=== PATIENT | female | born 1985 | race Hispanic/Latino ===

== ENCOUNTER 2018-06-26 19:11 | Emergency (ER) | payer SELFPAY ==
[2018-06-26] MEDS ORDERED: HYDROCODONE/APAP 5/325 MG TAB ONE (20:10)
[2018-06-26] MEDS ORDERED: CLINDAMYCIN IV 150 MG/ML (4 mL) VIAL ONE (20:25)
--- NOTE | 2018-06-26 20:36 | ER ---
Nurse's Notes [facility] Name: Glendy Baptiste Age: 32 yrs Sex: Female : 1985 Arrival Date: 06/26/2018 Time: 19:13 Bed 12 Private MD: Diagnosis: Periapical abscess without sinus Presentation: 06/26 19:35 Presenting complaint: Patient states: RIGHT cheek/gum/tooth swelling x 1 week. sr5 19:35 Acuity: KELLY 4 sr5 19:35 Transition of care: patient was not received from another setting of care. Onset of sr5 symptoms was June 19, 2018. Risk Assessment: Do you want to hurt yourself or someone else? Patient reports no desire to harm self or others. Initial Sepsis Screen: Does the patient meet any 2 criteria? No. Patient's initial sepsis screen is negative. Does the patient have a suspected source of infection? No. Patient's initial sepsis screen is negative. Care prior to arrival: Medication(s) given: Tylenol and MOtrin at approx 5pm. 19:35 Method Of Arrival: Ambulatory sr5 Triage Assessment: 19:35 General: Appears uncomfortable, Behavior is calm, cooperative. Pain: Complains of pain sr5 in mouth and right buccal mucosa. Neuro: No deficits noted. Cardiovascular: No deficits noted. Respiratory: No deficits noted. GI: No deficits noted. : No deficits noted. Derm: No deficits noted. Musculoskeletal: No deficits noted. 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 - Social history:: Smoking status: Patient uses tobacco products, smokes one-half pack cigarettes per day. - Ebola Screening: : Patient negative for fever greater than or equal to 101.5 degrees Fahrenheit, and additional compatible Ebola Virus Disease symptoms. Screenin:31 Abuse screen: Denies threats or abuse. Nutritional screening: No deficits noted. sr5 Tuberculosis screening: No symptoms or risk factors identified. Fall Risk None identified. Assessment: 20:30 General: Appears uncomfortable, Behavior is calm, cooperative. Pain: Complains of pain sr5 in gums and right buccal mucosa Pain currently is 10 out of 10 on a pain scale. Quality of pain is described as throbbing. Neuro: No deficits noted. Cardiovascular: No deficits noted. Respiratory: No deficits noted. GI: No deficits noted. : No deficits noted. Derm: No deficits noted. Musculoskeletal: No deficits noted. Vital Signs: 19:35 BP 124 / 85; Pulse 89; Resp 18; Temp 97.8; Pulse Ox 98% ; Weight 61.69 kg; Height 5 ft. sr5 4 in. (162.56 cm); Pain 10/10; 19:35 Body Mass Index 23.34 (61.69 kg, 162.56 cm) sr5 ED Course: 19:13 Patient arrived in ED. al2 19:35 Meng Orellana, RN is Primary Nurse. sr5 19:35 Arm band placed on. sr5 19:36 Triage completed. sr5 19:39 Lambert Flores NP is PHCP. pm1 19:39 Jhoan Bañuelos MD is Attending Physician. pm1 20:31 Awaiting: shot time. sr5 20:31 Patient has correct armband on for positive identification. Bed in low position. Call sr5 light in reach. 20:31 No provider procedures requiring assistance completed. Patient did not have IV access sr5 during this emergency room visit. Administered Medications: 20:11 Drug: [place] 5 mg-325 mg 1 tabs Route: PO; sr5 20:41 Follow up: Response: No change in condition sr5 20:30 Drug: Clindamycin 600 mg {Note: IM divided into 2 shots due to overall volume. RIGHT sr5 gluteus 2mL, LEFT gluteus 2 ML.} Route: IM; Site: left gluteus; 20:45 Follow up: Response: No adverse reaction sr5 Outcome: 19:46 Discharge ordered by . pm1 20:45 Patient left the ED. sr5 20:45 Discharged to home ambulatory. sr5 20:45 Condition: good 20:45 Discharge instructions given to patient, Instructed on discharge instructions, follow up and referral plans. medication usage, Demonstrated understanding of instructions, follow-up care, medications, Prescriptions given X 2. Signatures: Lambert Flores NP DRAGLINE ENGINEER pm1 Meng Orellana, RN RN sr5 Mayra, Lashon alIraj
--- NOTE | 2018-06-26 20:36 | EDPHYS ---
Physician Documentation [facility] Name: Glendy Baptiste Age: 32 yrs Sex: Female : 1985 Arrival Date: 06/26/2018 Time: 19:13 Bed 12 Private MD: ED Physician Jhoan Bañuelos HPI: 06/26 22:25 This 32 yrs old Female presents to ER via Ambulatory with complaints of Dental pm1 pain and swollen right cheek. 22:25 The patient presents with pain, swelling. The problem is located in the upper right pm1 third molar and upper right second molar. Onset: The symptoms/episode began/occurred 1 week(s) ago. Duration: The symptoms are continuous. Modifying factors: The symptoms are alleviated by nothing, the symptoms are aggravated by chewing, food. Associated signs and symptoms: Pertinent positives: swelling, facial, Pertinent negatives: fever, inability to eat, nausea, vomiting. Severity of symptoms: in the emergency department the symptoms are actually worse. The patient has experienced similar episodes in the past, a few times. The patient has not recently seen a physician. 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 - Social history:: Smoking status: Patient uses tobacco products, smokes one-half pack cigarettes per day. - Ebola Screening: : Patient negative for fever greater than or equal to 101.5 degrees Fahrenheit, and additional compatible Ebola Virus Disease symptoms. ROS: 22:25 Constitutional: Negative for fever, chills, and weight loss, Eyes: Negative for injury, pm1 pain, redness, and discharge. 22:25 Neck: Negative for injury, pain, and swelling, Cardiovascular: Negative for chest pain, palpitations, and edema, Respiratory: Negative for shortness of breath, cough, wheezing, and pleuritic chest pain, Abdomen/GI: Negative for abdominal pain, nausea, vomiting, diarrhea, and constipation, Back: Negative for injury and pain, MS/Extremity: Negative for injury and deformity, Skin: Negative for injury, rash, and discoloration, Neuro: Negative for headache, weakness, numbness, tingling, and seizure. 22:25 ENT: Positive for dental pain, Negative for sore throat, difficulty swallowing, difficulty handling secretions. Exam: 22:25 Constitutional: This is a well developed, well nourished patient who is awake, alert, pm1 and in no acute distress. Head/Face: Normocephalic, atraumatic. Eyes: Pupils equal round and reactive to light, extra-ocular motions intact. Lids and lashes normal. Conjunctiva and sclera are non-icteric and not injected. Cornea within normal limits. Periorbital areas with no swelling, redness, or edema. 22:25 Neck: Trachea midline, no thyromegaly or masses palpated, and no cervical lymphadenopathy. Supple, full range of motion without nuchal rigidity, or vertebral point tenderness. No Meningismus. Chest/axilla: Normal chest wall appearance and motion. Nontender with no deformity. No lesions are appreciated. Cardiovascular: Regular rate and rhythm with a normal S1 and S2. No gallops, murmurs, or rubs. Normal PMI, no JVD. No pulse deficits. Respiratory: Lungs have equal breath sounds bilaterally, clear to auscultation and percussion. No rales, rhonchi or wheezes noted. No increased work of breathing, no retractions or nasal flaring. Back: No spinal tenderness. No costovertebral tenderness. Full range of motion. Skin: Warm, dry with normal turgor. Normal color with no rashes, no lesions, and no evidence of cellulitis. MS/ Extremity: Pulses equal, no cyanosis. Neurovascular intact. Full, normal range of motion. 22:25 ENT: External ear(s): are unremarkable, Ear canal(s): are normal, Nose: is normal, Mouth: is normal, (-) tongue elevation (-) trismus no lip abnormalities, no mucosal abnormalities, no tongue abnormalities, Dental exam: dental caries, that is moderate, specifically in the upper right third molar (#1) and upper right second molar (#2), missing teeth, diffusely. 22:25 Neuro: Orientation: is normal, Motor: is normal, moves all fours. Vital Signs: 19:35 BP 124 / 85; Pulse 89; Resp 18; Temp 97.8; Pulse Ox 98% ; Weight 61.69 kg; Height 5 ft. sr5 4 in. (162.56 cm); Pain 10/10; 19:35 Body Mass Index 23.34 (61.69 kg, 162.56 cm) sr5 MDM: 19:39 Patient medically screened. pm1 19:44 Data reviewed: vital signs. Data interpreted: Pulse oximetry: on room air is 98 %. pm1 Interpretation: normal. Counseling: I had a detailed discussion with the patient and/or guardian regarding: the historical points, exam findings, and any diagnostic results supporting the discharge/admit diagnosis, the need for outpatient follow up, for definitive care, a dentist, to return to the emergency department if symptoms worsen or persist or if there are any questions or concerns that arise at home. Administered Medications: 20:11 Drug: [place] 5 mg-325 mg 1 tabs Route: PO; sr5 20:41 Follow up: Response: No change in condition sr5 20:30 Drug: Clindamycin 600 mg {Note: IM divided into 2 shots due to overall volume. RIGHT sr5 gluteus 2mL, LEFT gluteus 2 ML.} Route: IM; Site: left gluteus; 20:45 Follow up: Response: No adverse reaction sr5 Disposition: 06/27 01:16 Co-signature as Attending Physician, Jhoan Bañuelos MD I agree with the assessment and 4 plan of care. Attestation: The patient's history, exam findings, diagnostics, and a summary of any interventions or procedures was reviewed in detail with Lambert Flores NP. Disposition: 06/26/18 19:46 Discharged to Home. Impression: Periapical abscess without sinus. - Condition is Stable. - Discharge Instructions: Dental Abscess, Dental Pain, Diet and Dental Disease. - Prescriptions for Clindamycin HCl 300 mg Oral Capsule - take 1 capsule by ORAL route every 6 hours for 10 days; 40 capsule. Tylenol- Codeine #3 300-30 mg Oral Tablet - take 2 tablets by ORAL route every 6 hours As needed; 20 tablet. - Medication Reconciliation Form, Thank You Letter, Antibiotic Education, Prescription Opioid Use form. - Follow up: Emergency Department; When: As needed; Reason: Worsening of condition. Follow up: Private Physician; When: 2 - 3 days; Reason: Recheck today's complaints, Continuance of care, Re-evaluation by your physician. - Problem is new. - Symptoms have improved. Signatures: Lambert Flores NP BULK FOLDER pm1 Meng Orellana RN RN sr5 Jhoan Bañuelos MD MD tw4 Corrections: (The following items were deleted from the chart) 06/26 20:45 19:46 06/26/2018 19:46 Discharged to Home. Impression: Periapical abscess without sr5 sinus. Condition is Stable. Forms are Medication Reconciliation Form, Thank You Letter, Antibiotic Education, Prescription Opioid Use. Follow up: Emergency Department; When: As needed; Reason: Worsening of condition. Follow up: Private Physician; When: 2 - 3 days; Reason: Recheck today's complaints, Continuance of care, Re-evaluation by your physician. Problem is new. Symptoms have improved. pm1
== END 2018-06-26 20:45 | disposition home or self-care (01) ==
LOC: ER 19:11
DX: K04.7 Periapical abscess without sinus (principal); F17.210 Nicotine dependence, cigarettes, uncomplicated
CPT/HCPCS: 96372; 99283; S0077